=== PATIENT | female | born 1965 | race Caucasian/White ===

== ENCOUNTER 2025-06-28 13:28 | Outpatient (CLI) | payer OTHER | END 2025-06-28 13:29 | disposition home or self-care (01) | LOC: BICRAD 13:28 | PROVIDERS: ATTEND Student in an Organized Health Care Education/Training Program | DX: Z02.71 Encounter for disability determination (principal); M13.0 Polyarthritis, unspecified; M47.812 Spondylosis without myelopathy or radiculopathy, cervical region; M47.816 Spondylosis without myelopathy or radiculopathy, lumbar region; Z98.890 Other specified postprocedural states | CPT/HCPCS: 72040; 72100 ==